=== PATIENT | male | born 1985 | race African-American/Black ===

== ENCOUNTER 2021-06-24 09:41 | Emergency (ER) | payer OTHER ==
[2021-06-24 10:14] LABS: Hemoglobin 14.6 g/dL (14.0-18.0); Mean Corpuscular HGB CONC 30.9 g/dL (32.0-36.0); Mean Corpuscular Volume 90.6 fL (78.0-98.0); Mean Platelet Volume 10.1 fL (7.4-10.4); Platelet Count 189 thou/uL (130-400); RBC Distribution Width 14.1 % (11.5-14.5); Red Blood Cell (RBC) Count 5.23 mill/uL (4.70-6.10); White Blood Cell (WBC) Count 4.2 thou/uL (4.8-10.8)
[2021-06-24 10:27] LABS: ALT (SGPT) 17 U/L (8-55); AST (SGOT) 16 U/L (5-34); Albumin 4.4 g/dL (3.5-5.0); Alkaline Phosphatase 45 U/L (40-110); Anion Gap 15 mmol/L (10-20); BUN (Urea Nitrogen) 15 mg/dL (8.9-20.6); Bilirubin, Total 1.4 mg/dL (0.2-1.2); CK (CPK) 253 U/L (30-200); Calc. Creatinine Clearance 0 mL/min (70-130); Carbon Dioxide 29 mmol/L (22-29); Chloride 99 mmol/L (98-107); Eosinophils 4 % (0-10); Globulin 3.6 g/dL (2.4-3.5); Glucose 98 mg/dL (70-105); Lymphocytes 45 % (21-51); MDiff Complete? YES; Monocytes 12 % (0-10); Neutrophil 30 % (42-75); Potassium 4.1 mmol/L (3.5-5.1); Reactive Lymphocytes 9 % (0-10); Sodium 139 mmol/L (136-145)
[2021-06-24 10:28] LABS: Platelet Morphology Comment Appears Adequate
== END 2021-06-24 12:17 ==
LOC: NAV ERS 09:41
DX: R07.89 Other chest pain (principal); I10 Essential (primary) hypertension; E78.5 Hyperlipidemia, unspecified; F17.210 Nicotine dependence, cigarettes, uncomplicated; Z79.899 Other long term (current) drug therapy
CPT/HCPCS: 71045; 80053; 82550; 84484; 85025; 93005